=== PATIENT | male | born 1960 | race African-American/Black ===

== ENCOUNTER → 2020-04-08 | Outpatient (CLI) | payer OTHER ==
[~2020-04-08] MED LIST: ASA81BEC PO; BYSTOLIC10 MG PO; EDARBI40 MG PO; FUROSEMIDE 40 M40 MG PO; HYDRALAZINE 5050 MG PO; SIMVASTATIN80 MG PO; SPIRONOLACTONE25 MG PO; SUPER THERAVIT1 EACH PO; VASCEPA1 GM PO
== END ==
LOC: SJCVCIMAG 06:40
PROVIDERS: ATTEND Internal Medicine Cardiovascular Disease
DX: I49.3 Ventricular premature depolarization (principal); I25.810 Atherosclerosis of coronary artery bypass graft(s) without angina pectoris; Z95.1 Presence of aortocoronary bypass graft

== ENCOUNTER → 2020-04-11 | Outpatient (CLI) | payer OTHER ==
[~2020-04-11] VITALS: Ht 172.7 cm; Wt 97.5 kg
[2020-04-11 07:37] VITALS: BP 145/85
[2020-04-11 08:05] LABS: HEMOGLOBIN 14.2 gm/dL (14.0-18.0); MCH 31.7 pg (26.0-34.0); MCHC 33.8 g/dL (28.0-37.0); MCV 93.6 fL (80.0-100.0); RBC 4.49 mil/uL (4.50-6.00); RDW 12.9 % (10.5-14.5); WBC 7.2 thou/uL (4.0-11.0)
[2020-04-11 08:09] LABS: CALCIUM 9.2 mg/dL (8.5-10.1); CREATININE 1.6 mg/dL (0.7-1.3); POTASSIUM 4.5 mmol/L (3.5-5.1)
--- NOTE | 2020-04-11 08:35 | EKG ---
[facility] [place] [address] ELECTROCARDIOGRAM REPORT Name: MI SNEED Room #: REG [facility]#: [id number] Admission: 04/11/20 Attend Phys: Santiago Snow MD, Discharge: Date of : 64 Report #: [id number] THIS REPORT FOR: cc: Cornelio Paz MD, Travis J. MD Lundgren, Craig H. MD 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 04/11/20 0835 0732 Bao Ngo MD, [facility] /EPI
--- NOTE | 2020-04-14 18:19 | CATHLAB ---
[facility] [place] [address] INVASIVE PROCEDURE REPORT Name: MI SNEED Room #: REG RAIMUNDO Arredondo#: [id number] Admission: 04/11/20 Attend Phys: Santiago Snow MD, Discharge: Date of : 64 Report #: [id number] THIS REPORT FOR: cc: Cornelio Paz MD, Travis J. MD Mancuso, Gerald M. MD [facility] ~ APPROVED REPORT Study performed: 04/11/2020 10:32:05 Patient Details The patient is a 60 year-old male Event Personnel Santiago Snow Canvas Baster Jumpbasting, Javon Yu RN RN, Effie Marcos, Camelia Valles RTR Scrub, Lisa Valdes RT(R)() Monitor Procedures Performed Art Access - R femoral artery* 09199 Initial Mod Sed Same Phys/QHP Gr5y 704465 64793 Mod Sed Same Phys/QHP Ea 021861 Left Heart Cath Coronaries, Bypass Grafts 3569888 LHCCORCABG Renal Bilateral Peripheral Angiography 8740544 CVRENALBIL Hemostasis w/ Mynx Procedure Narrative The Right Groin^ was infiltrated with 1% Lidocaine subcutaneous anesthesia. A PINNACLE 6FR Sheath #[id number] sheath was inserted into the RFA 6F^. Coronary angiography was performed using coronary diagnostic catheters. The right coronary system was accessed and visualized with a JR4 catheter. The left coronary system was accessed and visualized with a JL4 catheter. The left ventricle was accessed and visualized with a PIGTAIL catheter. The patient tolerated the procedure well and there were no complications associated with the procedure. There was no hematoma. A 6F LCB Catheter was used to inject grafts. SHEEHAN to DIAG, SVG to LAD, and SVG to OM. The SVG to PDA graft was closed. Intraoperative Conscious Sedation Fluoro Time: 8.40 minutes Dose: DAP 83683.80 cGycm2 Contrast Type and Amount: Visipaque 130 ml [facility] [address] [place] [address] INVASIVE PROCEDURE REPORT Name: MI SNEED [id number] Admission: 04/11/20 Attend Phys: Santiago Snow, Discharge: Date of : 64 Report #: [id number] Hemodynamics The aortic pressure is 154/80 mmHg with a mean of 109 mmHg. The left ventricular pressure is 156/13 mmHg with a mean of mmHg. The left ventricular end diastolic pressure is 25 mmHg. Conclusion #1. Normal left ventricular size with inferior apical hypokinesis EF 45% range #2 left main moderately calcified relatively large mild disease giving rise to LAD and circumflex both of which are proximally occluded #3 LAD is moderately diseased after first septal medicare specialist this is occluded and filled via a bypass graft. #4 circumflex OM is proximally occluded #5 large dominant right coronary calcification and tortuosity. Giving rise to a subtotaled PDA which actually is occluded and filled via bridging collaterals in a moderately diseased and small RISA. #6 a large vein graft mildly diseased and tortuous filling a large OM branch which also retrograde fills the circumflex and a distal PDA. #7 SVG to the LAD is filling a moderate diseased and relatively small caliber LAD which retrograde fills and distally subtotal lesion around the apex. Some collateral filling of a distal PDA also noted. No occlusive disease in this graft or indication for intervention. #8 SVG to PDA occluded #9 bilateral renal arteries selectively injected have mild disease Recommendations and plan: Continue aggressive risk factor modification. There is moderate disease as described above but no indication for intervention. Patient will follow discharge protocol follow-up will be arranged. Continue aggressive risk factor modification <ELECTRONICALLY SIGNED> By: Santiago Snow MD, [facility] 04/14/201818 18 18 Santiago Snow MD, FACC /INF
== END | disposition home or self-care (01) ==
LOC: CATH 06:40
PROVIDERS: ATTEND Internal Medicine Cardiovascular Disease
DX: I25.810 Atherosclerosis of coronary artery bypass graft(s) without angina pectoris (principal); I70.1 Atherosclerosis of renal artery; I10 Essential (primary) hypertension; I25.2 Old myocardial infarction; E78.00 Pure hypercholesterolemia, unspecified; G47.30 Sleep apnea, unspecified; E78.1 Pure hyperglyceridemia; Z95.1 Presence of aortocoronary bypass graft; Z98.890 Other specified postprocedural states; Z79.899 Other long term (current) drug therapy; Z79.82 Long term (current) use of aspirin

== ENCOUNTER → 2021-07-14 | Outpatient (CLI) | payer OTHER | LOC: SJCVCIMAG 07:47 | PROVIDERS: ATTEND Internal Medicine Cardiovascular Disease | DX: I08.1 Rheumatic disorders of both mitral and tricuspid valves (principal); I42.9 Cardiomyopathy, unspecified; I73.9 Peripheral vascular disease, unspecified; Z95.1 Presence of aortocoronary bypass graft ==

== ENCOUNTER → 2021-07-20 | Outpatient (CLI) | payer OTHER ==
[~2021-07-20] VITALS: Ht 172.7 cm; Wt 100.0 kg
[~2021-07-20] MED LIST changes: +BYSTOLIC20 MG PO; +EDARBI80 MG PO; +LO-DOSE ASPIRIN81 M1 PO; +PACERONE 200 M200 M1 PO; +VYTORIN 10-101 EACH PO; +XARELTO20 MG PO
[2021-07-20 07:33] VITALS: BP 141/67
--- NOTE | 2021-07-20 09:14 | TEE ---
[facility] [place] [address] TRANSESOPHAGEAL ECHOCARDIOGRAM Name: MI SNEED Room #: REG RAIMUNDO Tiffany#: [id number] Admission: 07/20/21 Attend Phys: David oMhan MD, Discharge: Date of : 64 Report #: [id number] THIS REPORT FOR: cc: Cornelio Paz MD, Travis J. MD Santiago, Patrick MD [facility] ~ APPROVED REPORT Study performed: 07/20/2021 07:54:03 EXAM: Comprehensive 2D, Doppler, and color-flow Echocardiogram Patient Location: Out-Patient Room #: 9 Status: routine BSA: 2.13 HR: 74 bpm BP: 160/82 mmHg Rhythm: Atrial Fibrillation Other Information Study Quality: Good Indications Atrial Fibrillation Echo Enhancing Agent Indication: Rule out Shunt Agent(s) / Amount(s) Used: Agitated Saline 7 cc Procedure After obtaining informed consent, patient underwent transesophageal echo in the [employer] Prom[employer] Holding. Type of Sedation : Conscious Sedation Sedation was administered by Nurse. Sedation start time: 0800 Case end Time: 08 Sedation was achieved intravenously with: Versed (5mg) Fentanyl (75mcg) Transesophageal probe was inserted and advanced into esophagus without difficulty by David Mohan MD. Echo enhancement indication: R/O Septal defect. Echo enhancement agent administered: Agitated Saline The BUCKY was performed without complications. Synchronized Cardioversion acheived with 120 Joules after 1 [facility] [address] [place] [address] TRANSESOPHAGEAL ECHOCARDIOGRAM Name: MI SNEED Room #: REG CL [facility]#: [id number] Admission: 07/20/21 Attend Phys: David Mohan, Discharge: Date of : 64 Report #: [id number] attempt(s). Rhythm following Synchronized Cardioversion: Sinus Bradycardia Throughout the procedure, the blood pressure, pulse oximetry, cardiac rhythm, and rate were monitored. The patient tolerated the procedure without adverse effects. Recovery from conscious sedation was uneventful and vital signs were stable. Left Ventricle Left ventricle is mildly dilated. There is normal left ventricular wall thickness. Left ventricular systolic function is mild to moderately decreased. LVEF is 4045% %. Right Ventricle Right ventricle is dilated. The right ventricular systolic function is normal. Atria Left atrium is dilated. Injection of contrast documented no interatrial shunt. Right atrium is dilated. Aortic Valve The aortic valve is normal in structure. Trace aortic regurgitation. There is no aortic valvular stenosis. Mitral Valve The mitral valve is normal in structure. Moderate mitral regurgitation. No evidence of mitral valve stenosis. Tricuspid Valve The tricuspid valve is normal in structure. Mild tricuspid regurgitation. Pulmonic Valve The pulmonary valve is normal in structure. There is no pulmonic valvular regurgitation. Great Vessels The aortic root is normal in size. Pericardium There is no pericardial effusion. <Conclusion> Atrial fibrillation at baseline Consent was obtained [facility] [address] [place] [address] TRANSESOPHAGEAL ECHOCARDIOGRAM Name: FARAZ SNEEDN Room #: REG [facility]#: [id number] Admission: 07/20/21 Attend Phys: David Mohan, Discharge: Date of : 64 Report #: [id number] Timeout performed Left ventricle is mildly dilated with normal wall thickness Mild global hypokinesis ejection fraction 40-45% Moderately dilated atrium Left atrial appendage/moderate size no evidence of clot detected Normal right ventricle size/function Normal aortic valve structure and function Moderate/central mitral valve insufficiency Trace tricuspid valve insufficiency No evidence of ASD/VSD by color flow/bubble study Aorta no obvious calcification detected Patient was successfully cardioverted to sinus rhythm after 150 J /biphasic mode Patient tolerated procedure well Twelve-lead ECG pending <ELECTRONICALLY SIGNED> By: Davdi Mohan MD, FACC 07/20/21913 3 3 David Mohan MD, FACC /INF
--- NOTE | 2021-07-21 07:59 | EKG ---
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[facility] : 1960 Requested By: David Mohan Order Number: [id number] MD: Bao Ngo Measurements Intervals [place] Rate: 71 P: 48 CT: 263 QRS: 0 QRSD: 101 T: -12 QT: 421 QTc: 458 Interpretive Statements Sinus rhythm Prolonged CT interval Poor R wave progression Compared to ECG 04/11/2020 07:32:16 Sinus bradycardia no longer present Electronically Signed On 07-21-2021 7:59:43 RESIDENTIAL APPLIANCE REPAIR TECHNICIAN by Bao Ngo [email or web address] <ELECTRONICALLY SIGNED> By: Bao Ngo MD, [facility] 07/21/21 0759 0838 7 Bao Ngo MD, FACC /EPI
== END | disposition home or self-care (01) ==
LOC: CATH 06:30
PROVIDERS: ATTEND Internal Medicine
DX: I48.91 Unspecified atrial fibrillation (principal); I08.3 Combined rheumatic disorders of mitral, aortic and tricuspid valves; I10 Essential (primary) hypertension; E78.00 Pure hypercholesterolemia, unspecified; E78.5 Hyperlipidemia, unspecified; E78.1 Pure hyperglyceridemia; I42.9 Cardiomyopathy, unspecified; G47.30 Sleep apnea, unspecified; E66.9 Obesity, unspecified; Z98.890 Other specified postprocedural states; Z79.899 Other long term (current) drug therapy; Z95.1 Presence of aortocoronary bypass graft; Z79.01 Long term (current) use of anticoagulants; Z79.82 Long term (current) use of aspirin

== ENCOUNTER → 2021-10-06 | Outpatient (CLI) | payer OTHER | LOC: CAT 09:01 | PROVIDERS: ATTEND Internal Medicine Cardiovascular Disease | DX: I25.10 Atherosclerotic heart disease of native coronary artery without angina pectoris (principal); I51.7 Cardiomegaly ==

== ENCOUNTER 2021-10-08 06:05 | Observation (INO) | payer OTHER ==
[~2021-10-08] VITALS: Ht 172.7 cm; Wt 103.9 kg
[2021-10-08 07:25] VITALS: BP 149/97
[2021-10-08 07:32] LABS: ABSOLUTE NEUTROPHILS 4.1 thou/uL (1.4-8.2); BASOPHILS 0.7 % (0.0-2.0); EOSINOPHILS 1.4 % (0.0-3.0); HEMATOCRIT 40.9 % (42.0-52.0); HEMOGLOBIN 13.6 gm/dL (14.0-18.0); LYMPHOCYTES 27.7 % (24.0-44.0); MCH 31.9 pg (26.0-34.0); MCHC 33.4 g/dL (28.0-37.0); MCV 95.5 fL (80.0-100.0); MONOCYTES 11.8 % (1.0-8.0); PLATELET COUNT 221 thou/uL (150-400); POLYS 58.4 % (36.0-66.0); RBC 4.28 mil/uL (4.50-6.00); RDW 14.2 % (10.5-14.5); WBC 7.1 thou/uL (4.0-11.0)
[2021-10-08 07:41] LABS: CALCIUM 8.9 mg/dL (8.5-10.1); CREATININE 1.9 mg/dL (0.7-1.3)
[2021-10-08 07:42] LABS: POTASSIUM 5.5 mmol/L (3.5-5.1)
[2021-10-08 07:47] LABS: ALBUMIN 3.6 g/dL (3.4-5.0); TOTAL BILIRUBIN 0.5 mg/dL (0.2-1.0); TOTAL PROTEIN 6.9 g/dL (6.4-8.2)
[2021-10-08 07:55] LABS: APTT 28.4 Seconds (24.5-32.8); INR 1.06; PROTIME 11.5 Seconds (10.5-12.1)
[2021-10-08 19:50] VITALS: BP 123/75
[2021-10-08 20:45] VITALS: BP 123/75
[2021-10-09 00:21] VITALS: BP 126/71
[2021-10-09 01:15] VITALS: BP 126/71
--- NOTE | 2021-10-09 03:16 | NUR ---
SLEEPING WITH HOME CPAP ON WITHOUT COMPLAINTS. RIGHT GROIN DSG C/D/I AND NO HEMOTOMA AT THE SITE. WORKING ON GOALS AND PLAN OF CARE FOR NOC. CONTINUE TO ASSES CLOSELY.
[2021-10-09 04:45] VITALS: BP 120/75
[2021-10-09 07:55] VITALS: BP 136/90
[2021-10-09 09:59] VITALS: BP 136/90
--- NOTE | 2021-10-09 11:32 | NUR ---
PATIENT DISCHARGED HOME, EDUCATION DONE AT BEDSIDE. NO QUESTIONS OR CONCERNS AT TIME OF TEACHING. IV AND TELE REMOVED. TAKEN OUT BY WHEELCHAIR TO FRIEND WAITING IN PRIVATE VEHICLE.
--- NOTE | 2021-10-09 13:09 | P ---
[facility] [place] [address] PROCEDURE REPORT Name: MI SNEED Room #: 208-P [facility] Mario Arredondo#: [id number] Admission: 10/08/21 Attend Phys: Hugo Louis MD Discharge: 10/09/21 Date of : 64 Report #: [id number] THIS REPORT FOR: cc: Cornelio Paz MD, Travis J. MD Couchonnal, Luis F. MD ~ DATE OF SERVICE: 10/08/2021 AFIB ABLATION PREOPERATIVE DIAGNOSES: 1. Atrial fibrillation. 2. Typical atrial flutter. POSTOPERATIVE DIAGNOSES: 1. Atrial fibrillation. 2. Typical atrial flutter. PROCEDURES PERFORMED: 1. Atrial fibrillation ablation, CPT code 47128. 2. Focal ablation, CPT code 59599. 3. Second pathway ablation, CPT code 21792. HISTORY: The patient is a 61-year-old with a history of recurrent atrial fibrillation and typical atrial flutter, status post CABG, who is here for AFib and atrial flutter ablation. ANESTHESIA: The patient underwent general anesthesia with no anesthesia related complications. DESCRIPTION OF PROCEDURE: The patient underwent informed consent. We discussed the details of the procedure including the risks, which include but not limited to bleeding, infection, vascular damage, cardiac perforation, pneumothorax. He understood these risks and willing to proceed. The patient was brought to the EP laboratory in a fasting and sedated state, prepped and draped in a standard fashion, obtained access to the right femoral vein x 3, placing an 8, 9 and 7-Burkinan short sheath using the modified Seldinger technique. Under fluoroscopy, a decapolar catheter was placed in the coronary sinus, ICE catheter was placed in the right atrium. At baseline, the patient was in atrial fibrillation. Intracardiac ultrasound was utilized to create a 3D geometry of the left atrium. There was evidence of a left common ostium in 2 right sided pulmonary veins. There was no pericardial effusion. This was merged with the cardiac CT scan. The patient was systemically heparinized and a transseptal was used using an SL1 sheath and a Princeton needle. He had a large right atrium and the standard needle would not engage the septum. Therefore, I [facility] [address] [place] [address] PROCEDURE REPORT Name: MI SNEED Room #: 208-P [facility] Mario Arredondo#: [id number] Admission: 10/08/21 Attend Phys: Hugo Louis MD Discharge: 10/09/21 Date of : 64 Report #: [id number] opened up a Princeton C1 needle and this allowed for better reach and I was able to cross the interatrial septum without complications. The SL1 sheath was then exchanged for the cryosheath. Last the PentaRay ablation catheter was placed into the left atrium and a 3D geometry of the left atrium was created. Next, I started isolating the pulmonary veins. The left common ostium underwent two 4-minute freezes and there was evidence of isolation. The right superior pulmonary vein underwent a 60, 70 and a 60-second freeze, but due to poor temps, I came off early. I then performed a 4-minute freeze and this appeared to result in isolation. I then went to the right inferior pulmonary vein and I performed two 3-minute freezes. They did not result in isolation. I performed a 5-minute freeze and that resulted in slowing, but did not result in isolation. I therefore decided to move to proceed with focal ablation of the posterior wall. I performed posterior wall isolation using the cryoballoon and a total of 6 freezes was performed. I then went back to the right inferior pulmonary vein and this was still connected. I performed a 3-minute freeze and this last freeze resulted in isolation in this vein, the balloon was clocked more anteriorly. I then went to the right superior pulmonary vein and performed 2 additional freezes which resulted in slowing, but not isolation. Therefore, a repeat voltage map using the PentaRay ablation catheter was performed and all the pulmonary veins were now isolated, the posterior wall was also isolated; however, the right superior pulmonary vein remained connected and the area of connection was along the roof and posterior aspect of the right superior pulmonary vein. Therefore, I placed the ablation catheter at this location and we achieved isolation in about 20 seconds. I performed a 3-minute freeze here. There was never any phrenic nerve compromise. As such, the patient was cardioverted to sinus rhythm. I pulled catheters to the right atrium and then a basic EP study was performed. Post-ablation, the patient was in sinus rhythm with evidence of a left bundle branch block at baseline and HV interval was measured at 61 milliseconds. AV block was noted at 620 milliseconds. Atrial burst pacing was performed and the patient went into atrial flutter. The atrial cycle length was 360 milliseconds with proximal to distal activation along the CS and negative sawtooth flutter waves in the inferior leads. Next, I placed the PentaRay catheter back into the right atrium and created a 3D geometry of the right atrium and activation map and this map was consistent with cavotricuspid isthmus dependent flutter. As such, the patient was prepped for an atrial flutter ablation. ATRIAL FLUTTER ABLATION: An 8 mm ablation catheter and a ramp sheath were placed in the right atrium. Ablation was performed at 70 mejia and 60 degrees and as I ablated mid isthmus, there was termination of the flutter and returned to sinus rhythm. I continued ablating and I took care of additional areas of signal along the isthmus and post-ablation, the transisthmus conduction time was 203 milliseconds. As such, the patient was in sinus rhythm. There was no evidence of pericardial effusion. The patient received systemic protamine and once ACT was within acceptable range, catheters and sheaths were pulled. [facility] [address] [place] [address] PROCEDURE REPORT Name: MI SNEED Room #: [address] [place] [address]..#: [id number] Admission: 10/08/21 Attend Phys: Hugo Louis MD Discharge: 10/09/21 Date of : 64 Report #: [id number] Hemostasis was obtained. CONCLUSION: 1. Successful AFib ablation with isolation of the pulmonary veins. 2. Successful posterior wall isolation. 3. Successful typical atrial flutter ablation with evidence of bidirectional block. <ELECTRONICALLY SIGNED> By: Hugo Louis MD 10/09/21 1309 1140 1918 Hugo Louis MD /nt
== END 2021-10-09 11:34 | disposition home or self-care (01) ==
LOC: CATH 06:05 → 2N 13:46 → CATH 18:42 → 2N 10-09 11:34
PROVIDERS: ADMIT Internal Medicine Cardiovascular Disease; ATTEND Internal Medicine Cardiovascular Disease
DX: I48.92 Unspecified atrial flutter (principal); I48.91 Unspecified atrial fibrillation; Z20.822 Contact with and (suspected) exposure to COVID-19; I25.10 Atherosclerotic heart disease of native coronary artery without angina pectoris; I10 Essential (primary) hypertension; E78.5 Hyperlipidemia, unspecified; G47.33 Obstructive sleep apnea (adult) (pediatric)
CPT/HCPCS: 62110; 62900; 70005